=== PATIENT | male | born 1970 | race American Indian/Alaskan Native ===

== ENCOUNTER 2021-03-03 08:32 | Outpatient (CLI) | payer OTHER ==
--- NOTE | 2021-03-03 09:39 | XRay Report ---
Lumbar spine radiograph, 3 views. HISTORY: Back pain COMPARISON: None FINDINGS: 5 lumbar type vertebral bodies are assumed. Right convex curvature with apex at L3. Lumbar spinal alignment is preserved. Vertebral body heights are intact. There is no evidence of fracture. M ild multilevel disc degenerative changes, greatest at L4-L5 and L5-S1. Mild lower lumbar facet arthro marivel. IMPRESSION: Multilevel lumbar spondylosis, greatest at L4-L5 and L5-S1. No acute process Signer Name: Ramez Taylor MD Signed: 03/03/2021 9:35 AM Workstation Name: [email or web address]
== END 2021-03-03 08:33 | disposition home or self-care (01) ==
LOC: XRAY 08:32
PROVIDERS: ATTEND Internal Medicine
DX: M47.817 Spondylosis without myelopathy or radiculopathy, lumbosacral region (principal)
CPT/HCPCS: 72100